=== PATIENT | female | born 1965 | race Caucasian/White ===

== ENCOUNTER 2020-05-23 10:52 | Emergency (ER) | payer BC ==
[2020-05-23] MEDS ORDERED: ACETAMINOPHEN 325 MG TABLET PO ONE (11:04)
--- NOTE | 2020-05-23 11:41 | RADIOLOGY REPORT (SQ) ---
EXAM DESCRIPTION: CT HEAD WITHOUT IMAGES COMPLETED DATE/TIME: 05/23/2020 11:21 am REASON FOR STUDY: head injury COMPARISON: MRI dated 01/05/2015 TECHNIQUE: Axial images acquired through the brain without intravenous contrast. Images reviewed wi th bone, brain and subdural windows. Additional sagittal and coronal reconstructions were generated. Images stored on PACS. All CT scanners at this facility use dose modulation, iterative reconstruction, and/or weight based d osing when appropriate to reduce radiation dose to as low as reasonably achievable (ALARA). [facility]: Dose Right [facility]: CareDose [facility]: Dose Right [facility]: Teradose 4D [facility]: Smart NanoGram RADIATION DOSE: CT Rad equipment meets quality standard of care and radiation dose reduction techniq ues were employed. CTDIvol: 53.2 mGy. DLP: 1044 mGy-cm. mGy. LIMITATIONS: None. FINDINGS: VENTRICLES: Normal size and contour. CEREBRUM: No masses. No hemorrhage. No midline shift. No evidence for acute infarction. Normal gra y/white matter differentiation. No areas of low density in the white matter. Subtle high attenuation in the right posterior parietal lobe best demonstrated on series 2, image 20 is most consistent with parenchymal calcification. CEREBELLUM: No masses. No hemorrhage. No alteration of density. No evidence for acute infarction. EXTRAAXIAL SPACES: No fluid collections. No masses. ORBITS AND GLOBE: No intra- or extraconal masses. Normal contour of globe without masses. CALVARIUM: No fracture. PARANASAL SINUSES: No fluid or mucosal thickening. SOFT TISSUES: No mass or hematoma. OTHER: No other significant finding. IMPRESSION: No acute intracranial event. EVIDENCE OF ACUTE STROKE: NO. COMMENT: Quality ID # [id number]: Final reports with documentation of one or more dose reduction techniques (e.g., Automated exposure control, adjustment of the mA and/or kV according to patient size, use of iterative reconstruction technique) TECHNICAL DOCUMENTATION: JOB ID: [id number] 2010 [employer]- All Rights Reserved Reading location - IP/workstation name: [email or web address]
--- NOTE | 2020-05-23 11:43 | RADIOLOGY REPORT (SQ) ---
EXAM DESCRIPTION: CT CERVICAL SPINE WITHOUT IMAGES COMPLETED DATE/TIME: 05/23/2020 11:21 am REASON FOR STUDY: neck injury COMPARISON: None. TECHNIQUE: Axial images acquired through the cervical spine without intravenous contrast. Images re viewed with lung, soft tissue and bone windows. Reconstructed coronal and sagittal MPR images review ed. Images stored on PACS. All CT scanners at this facility use dose modulation, iterative reconstruction, and/or weight based d osing when appropriate to reduce radiation dose to as low as reasonably achievable (ALARA). [facility]: Dose Right [facility]: CareDose [facility]: Dose Right [facility]: Teradose 4D [facility]: Smart GenAudio RADIATION DOSE: CT Rad equipment meets quality standard of care and radiation dose reduction techniq ues were employed. CTDIvol: 17.4 mGy. DLP: 356 mGy-cm. mGy. LIMITATIONS: None. FINDINGS: ALIGNMENT: Anatomic. MINERALIZATION: Normal. VERTEBRAL BODIES: No fractures or dislocation. DISCS: Disc space narrowing from C3-4 through C6-C7. Small anterior and posterior osteophytes. FACETS, LATERAL MASSES, POSTERIOR ELEMENTS: No fractures. No dislocation. No acute findings. HARDWARE: None in the spine. VISUALIZED RIBS: No fractures. LUNG APICES AND SOFT TISSUES: No significant or acute findings. OTHER: Scattered cervical nodes identified most likely reactive. IMPRESSION: Mild multilevel disc degenerative disease. No acute fracture or dislocation. TECHNICAL DOCUMENTATION: JOB ID: [id number] Quality ID # [id number]: Final reports with documentation of one or more dose reduction techniques (e.g., Au tomated exposure control, adjustment of the mA and/or kV according to patient size, use of iterative reconstruction technique) 2010 [employer]- All Rights Reserved Reading location - IP/workstation name: [email or web address]
--- NOTE | 2020-05-23 11:44 | RADIOLOGY REPORT (SQ) ---
EXAM DESCRIPTION: T SPINE AP/LAT IMAGES COMPLETED DATE/TIME: 05/23/2020 11:27 am REASON FOR STUDY: injury COMPARISON: None. NUMBER OF VIEWS: Two views. TECHNIQUE: AP and lateral radiographic images acquired of the thoracic spine. LIMITATIONS: None. FINDINGS: MINERALIZATION: Normal. ALIGNMENT: No spondylolisthesis or scoliotic curvature. VERTEBRAE: The thoracic vertebral body heights are preserved. DISCS: The intervertebral disc spaces are preserved. HARDWARE: None in the spine. MEDIASTINUM AND SOFT TISSUES: The cardiomediastinal silhouette is within normal limits. VISUALIZED LUNG HOANG: Clear. OTHER: No other finding. IMPRESSION: No acute fracture or malalignment of the thoracic spine. TECHNICAL DOCUMENTATION: JOB ID: [id number] 2010 [employer]- All Rights Reserved Reading location - IP/workstation name: [email or web address]
--- NOTE | 2020-05-23 12:11 | ER Document Report ---
HPI - HPI Patient complains to provider of: Neck pain, Headache, Back pain Time Seen by Provider: 05/23/20 10:58 Pain Level: 3 Context: 54-year-old female presents emergency room complaining of a headache, neck pain, upper back pain. Patient states she was at work when a box fell hitting her on the back of her head neck and upper back. She denies falling to the ground. Denies any loss of consciousness. States she feels nauseous but has not vomited. Also states she feels dizzy and lightheaded. Took ibuprofen without relief. Drove self to the emergency room. Exacerbated by: Movement Relieved by: Denies Similar symptoms previously: No Recently seen / treated by doctor: No - ROS Systems Reviewed and Negative: Yes All other systems reviewed and negative - CONSTITUTIONAL Constitutional: DENIES: Fever, Chills - EENT EENT: DENIES: Sore Throat, Ear Pain, Eye problems - NEURO Neurology: DENIES: Headache, Weakness, Vision blurred, Dizzinesss / Vertigo - CARDIOVASCULAR Cardiovascular: DENIES: Chest pain - RESPIRATORY Respiratory: DENIES: Trouble Breathing, Coughing - GASTROINTESTINAL Gastrointestinal: DENIES: Abdominal Pain, Black / Bloody Stools - URINARY Urinary: DENIES: Dysuria, Urgency, Frequency - REPRODUCTIVE Reproductive: DENIES: : - MUSCULOSKELETAL Musculoskeletal: DENIES: Extremity pain - DERM Skin Color: Normal Past Medical History - General Information source: Patient - Social History Smoking Status: Current Every Day Smoker Frequency of alcohol use: Occasional Drug Abuse: None Family History: None Patient has homicidal ideation: No - Past Medical History Cardiac Medical History: Reports: Hx Hypercholesterolemia Denies: Hx Coronary Artery Disease, Hx Heart Attack, Hx Hypertension Pulmonary Medical History: Reports: Hx Bronchitis - for the last 2 yrs, Hx Pneumonia - yrs ago Denies: Hx Asthma, Hx COPD Neurological Medical History: Denies: Hx Cerebrovascular Accident, Hx Seizures Musculoskeletal Medical History: Denies Hx Arthritis Past Surgical History: Reports: Hx Hysterectomy. Denies: Hx Pacemaker - Immunizations Hx Diphtheria, Pertussis, Tetanus Vaccination: Yes - 2012 [facility] Provider Document - CONSTITUTIONAL Agree With Documented VS: Yes Exam Limitations: No Limitations General Appearance: Mild Distress - INFECTION CONTROL TRAVEL OUTSIDE OF THE [place] IN LAST 30 DAYS: No - HEENT HEENT: Atraumatic, Normal ENT Exam, Normocephalic, PERRLA Notes: Negative for marroquin signs, negative for raccoon eyes. Positive photosensitivity bilaterally. No nystagmus. - NECK Neck: Normal Inspection, Supple Notes: Nontender to palpation over the cervical spine. Tenderness of the bilateral trapezius muscles. Mild tenderness noted with lateral movement of the neck. Obvious deformity noted. - RESPIRATORY Respiratory: Breath Sounds Normal, No Respiratory Distress, Chest Non-Tender. negative: Rales, Rhonchi, Wheezing - CARDIOVASCULAR Cardiovascular: Regular Rate, Regular Rhythm, No Murmur - GI/ABDOMEN Gastrointestinal: Abdomen Soft, Abdomen Non-Tender - BACK Back: Abnormal Inspection - Tenderness on palpation from T4-T6, no deformity noted. Full range of motion of flexion-extension of the upper back. - NEURO Level of Consciousness: Awake, Alert, Appropriate Motor/Sensory: No Motor Deficit, No Sensory Deficit Notes: Strength equal and adequate bilaterally. No weakness noted. Ambulatory with a steady gait. - DERM Integumentary: Warm, Dry, No Rash Course - Re-evaluation Re-evalutation: 05/23/2020 11:00 Presentation of head trauma in an otherwise well-appearing patient. Mild neurologic deficits on exam, no evidence of basilar skull fracture on exam without evidence of hemotympanum, raccoon eyes, or periauricular hematoma. No papilledema. Patient is not on anticoagulation. GCS is 15. No loss of consciousness. Complains of dizziness, headache, nausea. No episodes of vomiting. Patient is positive via Ness head CT criteria and CT imaging will be obtained at this time. 05/23/20 12:06 Patient is resting comfortably with decreased pain. Reviewed all test results with patient. Ambulatory with a steady gait. Neurovascularly intact. Counseled on need to follow-up outpatient with her employer for referral to Worker's Comp. Can take Tylenol and or Motrin for pain. Flexeril as prescribed. Patient was given strict return to the emergency room guidelines. Return for any new or worsening symptoms. All questions were answered. Patient verbalized understanding and agrees with plan of care. 05/23/20 13:54 - Vital Signs Vital signs: Temp Pulse Resp BP Pulse Ox 98.2 F 105 H 16 173/72 H 96 05/23/20 10:58 05/23/20 10:57 05/23/20 10:57 05/23/20 10:57 05/23/20 10:57 - Diagnostic Test Radiology reviewed: Reports reviewed Discharge - Discharge Clinical Impression: Headache Qualifiers: Headache type: post-traumatic Headache chronicity pattern: acute headache Intractability: not intractable Qualified Code(s): G44.319 - Acute post- traumatic headache, not intractable Neck injury Qualifiers: Encounter type: initial encounter Qualified Code(s): S19.9XXA - Unspecified injury of neck, initial encounter Injury of back Qualifiers: Encounter type: initial encounter Qualified Code(s): S39.92XA - Unspecified injury of lower back, initial encounter Head injury Qualifiers: Encounter type: initial encounter Qualified Code(s): S09.90XA - Unspecified injury of head, initial encounter Condition: Stable Disposition: HOME, SELF-CARE Instructions: Head Injury Precautions ([facility]), Neck Injury (Cervical Strain) ([facility]), Upper Back Strain ([facility]) Additional Instructions: Take Tylenol as needed for pain. Muscle relaxers as prescribed. Follow-up with your employer for Worker's Comp. provider. Return for any new or worsening symptoms. Prescriptions: Cyclobenzaprine HCl [Flexeril 10 mg Tablet] 10 mg PO TIDP PRN #15 tab PRN Reason: Forms: Return to Work
[2020-05-23 12:16] VITALS: BP 131/66
== END 2020-05-23 12:16 | disposition home or self-care (01) ==
LOC: ER 10:52
DX: G44.319 Acute post-traumatic headache, not intractable (principal); S39.92XA Unspecified injury of lower back, initial encounter; S19.9XXA Unspecified injury of neck, initial encounter; S09.90XA Unspecified injury of head, initial encounter; R42 Dizziness and giddiness; W20.8XXA Other cause of strike by thrown, projected or falling object, initial encounter; Y99.0 Civilian activity done for income or pay; F17.200 Nicotine dependence, unspecified, uncomplicated; E78.00 Pure hypercholesterolemia, unspecified; Z90.710 Acquired absence of both cervix and uterus
CPT/HCPCS: 70450; 72070; 72125; 99284